=== PATIENT | female | born 1985 | race American Indian/Alaskan Native ===

== ENCOUNTER 2017-01-23 08:46 | Emergency (ER) | payer OTHER ==
[2017-01-23 08:54] VITALS: BMI 28.3
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
[2017-01-23] MEDS ORDERED: Silver Sulfadiazine 1% Cream (20 gm) TOP STA (09:45)
[2017-01-23] MEDS ORDERED: TDAP Vaccine 0.5 mL Syr IM ONE (09:45)
[2017-01-23 10:06] VITALS: BP 147/93; PULSE 84; RESP 18; TEMP 98.7; O2SAT 98
[2017-01-23] MEDS: Oxycodone/Acetaminophen 5/325 mg Tab PO STA ×2 (10:17→10:43)
== END 2017-01-23 10:56 | disposition home or self-care (01) ==
LOC: ED 08:46
DX: T24.212A Burn of second degree of left thigh, initial encounter (principal); X10.0XXA Contact with hot drinks, initial encounter
CPT/HCPCS: 16020; 90471; 90715; 96372; 99283; J1885